=== PATIENT | male | born 1975 | race Caucasian/White ===

== ENCOUNTER 2019-10-10 04:02 | Emergency (ER) | payer OTHER ==
[2019-10-10 04:45] VITALS: BP 126/87; PULSE 69; TEMP 97.9; BMI 28.8
[2019-10-10] MEDS ORDERED: ACETAMINOPHEN 1000 MG/100 ML VIAL (NON FORMULARY) IVPB ONE (04:55)
[2019-10-10] MEDS ORDERED: SODIUM CHLORIDE 0.9% 1000 ML INFUS.BAG IV ONE (04:55)
[2019-10-10] MEDS ORDERED: ONDANSETRON 4 MG/2 ML VIAL IVPUSH ONE (04:55)
[2019-10-10] MEDS ORDERED: FAMOTIDINE 20 MG/50 ML IVPB 20 MG/50 ML MG IVPB ONE ×3 (04:55→05:48)
--- NOTE | 2019-10-10 05:02 | PDOC ---
History of Present Illness - General Chief Complaint: Pain, Acute Stated Complaint: ABD PAIN Time Seen by Provider: 10/10/19 04:45 History Source: Patient Exam Limitations: No Limitations - History of Present Illness Initial Comments: 10/10/19 04:56 44M with a PMH of GERD who presents to the ER with complaints of abdominal pain. The patient states that his pain began at 1500 yesterday and he thought it was his normal GERD. He took his nexium without any relief. Since then, he states that his pain radiated to his chest which he has not had before. He states that the pain initially started in his LLQ then radiated diffusely to his abdomen, then went to his chest. He denies chest pain, SOB, fever, chills. He admits to vomiting once, NBNB, and "some" diarrhea. Denies sick contacts. Denies EtOH and tobacco. Denies recent travel. Denies dysuria and hematuria. Past History - Past Medical History Allergies/Adverse Reactions: Allergies Allergy/AdvReac Type Severity Reaction Status Date / Time No Known Allergies Allergy Verified 10/28/11 10:38 Home Medications: Ambulatory Orders Ranitidine HCl [Zantac] 150 mg PO BID #30 capsule 10/28/11 COPD: No Diabetes: No Disorders: No Kidney Stones: No Liver Disease: No - Immunization History Td Vaccination: Yes Immunization Up to Date: Yes - Psycho Social/Smoking Cessation Hx Smoking Status: Yes Smoking History: Current every day smoker Number of Cigarettes Smoked Daily: 10 Information on smoking cessation initiated: No Review of Systems - Review of Systems Able to Perform ROS?: Yes Comments:: 10/10/19 05:19 GENERAL/CONSTITUTIONAL: No fever or chills. No weakness. HEAD, EYES, EARS, NOSE AND THROAT: No change in vision. No ear pain or discharge. No sore throat. CARDIOVASCULAR: No chest pain, palpitations, or lightheadedness. RESPIRATORY: No cough, wheezing, shortness of breath, or hemoptysis. GASTROINTESTINAL: + for abdominal pain, nausea, vomiting, diarrhea. No constipation. GENITOURINARY: No dysuria, frequency, hematuria, or change in urination. MUSCULOSKELETAL: No joint or muscle swelling or pain. No neck or back pain. SKIN: No rash or lesions. NEUROLOGIC: No headache, numbness, tingling, focal weakness, loss of consciousness, or change in strength/sensation. Is the patient limited [place] proficient: No *Physical Exam - Vital Signs Last Vital Signs Temp Pulse Resp BP Pulse Ox 97.9 F 69 18 126/87 99 10/10/19 04:43 10/10/19 04:43 10/10/19 04:43 10/10/19 04:43 10/10/19 04:43 - Physical Exam 10/10/19 05:19 GENERAL: Well developed, well nourished. Awake and alert. No acute distress. HEENT: Normocephalic, atraumatic. Hearing grossly normal. Moist mucous membranes. PERRLA, EOMI. No conjunctival pallor. Sclera are non-icteric. NECK: Supple. Full ROM. No JVD. CARDIOVASCULAR: Regular rate and rhythm. No murmurs, rubs, or gallops. PULMONARY: No evidence of respiratory distress. Lungs clear to auscultation bilaterally. No wheezing, rales, or rhonchi. ABDOMINAL: Soft. Diffusely tender to deep palpation. Non-distended. No rebound or guarding. GENITOURINARY: No CVA tenderness bilaterally. MUSCULOSKELETAL: Normal range of motion at all joints. No bony deformities or tenderness. EXTREMITIES: No cyanosis. No clubbing. No edema. No calf tenderness or swelling. SKIN: Warm and dry. Normal capillary refill. No rashes. No jaundice. NEUROLOGICAL: Alert, awake, appropriate. Cranial nerves 2-12 grossly intact. Normal speech. Gait is normal without ataxia. PSYCHIATRIC: Cooperative. Good eye contact. Appropriate mood and affect. ED Treatment Course - LABORATORY CBC & Chemistry Diagram: 10/10/19 05:00 10/10/19 05:00 - RADIOLOGY Radiology Studies Ordered: Category Date Time Status ABDOMEN & PELVIS CT WITH CONTR [CT] Stat CT Scan 10/10/19 04:54 Ordered CHEST PA & LAT [RAD] Stat Radiology 10/10/19 04:54 Ordered Medical Decision Making - Medical Decision Making 10/10/19 05:20 44M with no PMH who presents with diffuse abdominal pain. Will obtain EKG, CBC, CMP, lipase, troponin, and CTAP. Will treat symptomatically. 10/10/19 07:09 CBC shows mild WBC elevation. Pt signed out to Dr. Hernandez for further evaluation. Pending CMP and CTAP. Discharge - Discharge Information Problems reviewed: Yes Clinical Impression/Diagnosis: Abdominal pain Qualifiers: Abdominal location: unspecified location Qualified Code(s): R10.9 - Unspecified abdominal pain Disposition: AGAINST MEDICAL ADVICE - Follow up/Referral Referrals: Savi Murray [Primary Care Provider] - - Patient Discharge Instructions Patient Printed Discharge Instructions: DI for Abdominal Pain-Adult Additional Instructions: You were evaluated today in the ER for your abdominal pain. We performed CT of your abdomen and pelvis which was significant for a liver cyst which requires follow-up as well as gall bladder wall thickening which may represent a cholecystitis (gall bladder infection). We performed ultrasound of your abdomen as well however you elected to leave against medical advice before the read returned as your symptoms had improved. Please follow-up with primary care as discussed for further evaluation as soon as possible. Return to ER immediately if any change in symptoms or return of pain. - Post Discharge Activity
[2019-10-10] MEDS ORDERED: ONDANSETRON 4 MG/2 ML VIAL ONE (05:07)
[2019-10-10] MEDS ORDERED: ACETAMINOPHEN INJECTION 100 ML IVPB ONE (05:07)
--- NOTE | 2019-10-10 05:44 | PDOC ---
Attending Attestation - Resident Resident Name: Andi Kirkland - ED Attending Attestation I have performed the following: I have examined & evaluated the patient, The case was reviewed & discussed with the resident, I agree w/resident's findings & plan - HPI HPI: 10/10/19 06:30 Pt comes with abdominal pain - Physicial Exam PE: 10/10/19 07:04 Exam diffuse abd pain Afebrile VSS lungs clear Heart RRR Abd soft NT ND neuro intact - Medical Decision Making 10/14/19 23:58 Pt will be signed out to the day team. 10/15/19 00:00 labs/CT/sono pending
[2019-10-10 06:10] LABS: WHITE BLOOD COUNT 12.7 K/mm3 (4.0-10.0)
[2019-10-10 06:11] LABS: BASO % 0.9 % (0-2.0); EOS % 2.1 % (0-4.5); HEMATOCRIT 44.9 % (35.4-49); HEMOGLOBIN 15.4 GM/dL (11.7-16.9); LYMPH % 26.4 % (8-40); MCH 29.6 pg (25.7-33.7); MCHC 34.3 g/dl (32.0-35.9); MEAN CELL VOLUME 86.3 fl (80-96); MEAN PLT VOLUME 9.6 fl (7.5-11.1); MONO % 6.7 % (3.8-10.2); NEUT % 63.9 % (42.8-82.8); PLATELET COUNT 255 K/MM3 (134-434); RDW 14.1 % (11.9-15.9)
[2019-10-10 06:27] LABS: INR 1.03 (0.83-1.09); PROTHROMBIN TIME (PATIENT) 12.2 SEC (9.7-13.0)
[2019-10-10 07:21] LABS: ALBUMIN 3.8 g/dl (3.4-5.0); ALK PHOS 69 U/L (45-117); ANION GAP 7 MMOL/L (8-16); BILIRUBIN,TOTAL 0.3 mg/dL (0.2-1); BLOOD UREA NITROGEN 13.6 mg/dL (7-18); CALCIUM 9.1 mg/dL (8.5-10.1); CHLORIDE 107 mmol/L (98-107); CO2 23 mmol/L (21-32); GLUCOSE,RANDOM 104 mg/dL (74-106); POTASSIUM 5.1 mmol/L (3.5-5.1); SGOT/AST 55 U/L (15-37); SGPT/ALT 44 U/L (13-61); SODIUM 137 mmol/L (136-145); TOT PROT 7.2 g/dl (6.4-8.2)
--- NOTE | 2019-10-10 07:50 | PDOC ---
History of Present Illness - General Chief Complaint: Pain, Acute Stated Complaint: ABD PAIN Time Seen by Provider: 10/10/19 04:45 Past History - Past Medical History Allergies/Adverse Reactions: Allergies Allergy/AdvReac Type Severity Reaction Status Date / Time No Known Allergies Allergy Verified 10/28/11 10:38 Home Medications: Ambulatory Orders Ranitidine HCl [Zantac] 150 mg PO BID #30 capsule 10/28/11 COPD: No Diabetes: No Disorders: No Kidney Stones: No Liver Disease: No - Immunization History Td Vaccination: Yes Immunization Up to Date: Yes - Psycho Social/Smoking Cessation Hx Smoking Status: Yes Smoking History: Current every day smoker Number of Cigarettes Smoked Daily: 10 Information on smoking cessation initiated: No Review of Systems - Review of Systems Is the patient limited Dutch proficient: No *Physical Exam - Vital Signs Last Vital Signs Temp Pulse Resp BP Pulse Ox 97.9 F 69 18 126/87 99 10/10/19 04:43 10/10/19 04:43 10/10/19 04:43 10/10/19 04:43 10/10/19 04:43 ED Treatment Course - LABORATORY CBC & Chemistry Diagram: 10/10/19 05:00 10/10/19 05:00 - ADDITIONAL ORDERS Additional order review: Laboratory Results 10/10/19 10/10/19 10/10/19 05:00 05:00 05:00 PT with INR 12.20 INR 1.03 Sodium 137 Potassium 5.1 Chloride 107 Carbon Dioxide 23 Anion Gap 7 L BUN 13.6 Creatinine 1.0 Est GFR (CKD-EPI)AfAm 104.15 Est GFR (CKD-EPI)NonAf 89.86 Random Glucose 104 Calcium 9.1 Total Bilirubin 0.3 AST 55 H ALT 44 Alkaline Phosphatase 69 Creatine Kinase 782 H Creatine Kinase Index 1.7 CK-MB (CK-2) 13.4 H Troponin I < 0.02 Total Protein 7.2 Albumin 3.8 Lipase 85 10/10/19 05:00 RBC 5.20 MCV 86.3 MCHC 34.3 RDW 14.1 MPV 9.6 Neutrophils % 63.9 Lymphocytes % 26.4 Monocytes % 6.7 Eosinophils % 2.1 Basophils % 0.9 - Medications Given in the ED: ED Medications Discontinued Medications Generic Name Dose Route Start Last Admin Trade Name Freq PRN Reason Stop Dose Admin Acetaminophen 1,000 mg 10/10/19 04:55 10/10/19 05:31 Ofirmev Injection - IVPB 10/10/19 04:56 1,000 mg ONCE ONE Administration Famotidine/Sodium Chloride 20 mg in 50 mls @ 100 mls/hr 10/10/19 04:55 05:52 Pepcid 20 Mg Premixed Ivpb - IVPB 10/10/19 05:24 100 mls/hr ONCE ONE Administration Ondansetron HCl 4 mg 10/10/19 04:55 10/10/19 05:31 Zofran Injection IVPUSH 10/10/19 04:56 4 mg ONCE ONE Administration Sodium Chloride 1,000 ml 10/10/19 04:55 10/10/19 05:31 Normal Saline - IV 10/10/19 04:56 1,000 ml ONCE ONE Administration Medical Decision Making - Medical Decision Making 10/10/19 07:[address] Kirkland. Patient is a 44 yo male w/ pmh of GERD who presents for evaluation of abdominal pain. Patient initially thought it was his normal GERD however presents as pain has persisted. Currently pending CTAP for further evaluation of pain found in LLQ upon exam. 10/10/19 10:[address] significant for 7mm liver cyst w/ additional 6mm gallbladder wall thickening. Patient received US for further evaluation however elected to leave AMA prior to US read. Patient advised to f/u w/ PCP for further evaluation and return to ER if any acute changes. Patient verbalized understanding and agreement with this plan. I will call patient w/ US results. [phone] 10/10/19 13:04 Patient US read returned negative for acute process w/ adenomyomatosis and fatty liver w/ aforementioned cyst. Called patient and informed of results; patient verbalized understanding and will f/u. Discharge - Discharge Information Problems reviewed: Yes Clinical Impression/Diagnosis: Abdominal pain Qualifiers: Abdominal location: unspecified location Qualified Code(s): R10.9 - Unspecified abdominal pain Disposition: AGAINST MEDICAL ADVICE - Follow up/Referral Referrals: Savi Murray [Primary Care Provider] - - Patient Discharge Instructions Patient Printed Discharge Instructions: DI for Abdominal Pain-Adult Additional Instructions: You were evaluated today in the ER for your abdominal pain. We performed CT of your abdomen and pelvis which was significant for a liver cyst which requires follow-up as well as gall bladder wall thickening which may represent a cholecystitis (gall bladder infection). We performed ultrasound of your abdomen as well however you elected to leave against medical advice before the read returned as your symptoms had improved. Please follow-up with primary care as discussed for further evaluation as soon as possible. Return to ER immediately if any change in symptoms or return of pain. - Post Discharge Activity
--- NOTE | 2019-10-10 09:11 | EKG ---
Test Reason : Blood Pressure : / mmHG Vent. Rate : 068 BPM Atrial Rate : 068 BPM P-R Int : 118 ms QRS Dur : 082 ms QT Int : 402 ms P-R-T Axes : 016 -02 037 degrees QTc Int : 427 ms POOR DATA QUALITY, INTERPRETATION MAY BE ADVERSELY AFFECTED NORMAL SINUS RHYTHM NORMAL ECG WHEN COMPARED WITH ECG OF 03-FEB-2019 10:23, NO SIGNIFICANT CHANGE WAS FOUND Confirmed by Richelle Centeno ([id number]) on 10/10/2019 9:10:59 AM Referred By: Confirmed By:Richelle Centeno
== END 2019-10-10 10:53 | disposition left against medical advice (07) ==
LOC: JER 04:02
PROC: 3E033GC Introduction of Other Therapeutic Substance into Peripheral Vein, Percutaneous Approach (ICD-10-PCS; principal; 2019-10-10)
PROC: 3E033GC Introduction of Other Therapeutic Substance into Peripheral Vein, Percutaneous Approach (ICD-10-PCS; 2019-10-10)
PROC: 3E033NZ Introduction of Analgesics, Hypnotics, Sedatives into Peripheral Vein, Percutaneous Approach (ICD-10-PCS; 2019-10-10)
DX: R10.84 Generalized abdominal pain (principal); R11.2 Nausea with vomiting, unspecified; K21.9 Gastro-esophageal reflux disease without esophagitis; F17.210 Nicotine dependence, cigarettes, uncomplicated
CPT/HCPCS: 36415; 71046-TC-FY; 74177-TC; 76705-TC; 80053; 82550; 82553; 83690; 84484; 85025; 85610; 93005; 93010; 96365; 96375; 99285-25; J0131; J7030

== ENCOUNTER 2021-05-08 10:44 | Emergency (ER) | payer OTHER ==
[2021-05-08 10:52] VITALS: BP 139/87; PULSE 64; TEMP 98.1; BMI 26.6
[2021-05-08] MEDS ORDERED: LIDOCAINE 5% TOPICAL PATCH TP ONE (11:39)
[2021-05-08] MEDS ORDERED: KETOROLAC TROMETHAMINE 30 MG/1 ML VIAL IM ONE (11:39)
[2021-05-08] MEDS ORDERED: LIDOCAINE 5% TOPICAL PATCH ONE (11:45)
[2021-05-08] MEDS ORDERED: KETOROLAC TROMETHAMINE 30 MG/1 ML VIAL ONE (11:45)
[2021-05-08] MEDS ORDERED: LIDOCAINE PATCH REMOVAL MC ONE (22:00)
== END 2021-05-08 12:19 | disposition home or self-care (01) ==
LOC: JERFT 10:44
PROC: 3E0233Z Introduction of Anti-inflammatory into Muscle, Percutaneous Approach (ICD-10-PCS; principal; 2021-05-08)
DX: S39.092A Other injury of muscle, fascia and tendon of lower back, initial encounter (principal); X50.0XXA Overexertion from strenuous movement or load, initial encounter
CPT/HCPCS: 99284-25